=== PATIENT | female | born 1975 | race Caucasian/White ===

== ENCOUNTER 2020-08-03 10:11 | Emergency (ER) | payer BC, SELFPAY ==
[2020-08-03 10:54] LABS: #Basophils 0.1 thou/uL (0.0-0.2); #Eosinphils 0.3 thou/uL (0.0-0.7); #Lymphocytes 3.7 thou/uL (1.20-3.40); #Monocytes 0.6 thou/uL (0.11-0.59); #Neutrophils 8.4 thou/uL (1.40-6.50); %Basophils 0.9 % (0.0-1.0); %Eosinophils 2.2 % (0.0-10.0); %Lymphocytes 28.5 % (21.0-51.0); %Monocytes 4.9 % (0.0-10.0); %Neutrophils 63.6 % (42.0-75.0); Hemoglobin 15.6 g/dL (12.0-16.0); Mean Corpuscular HGB CONC 34.4 g/dL (32.0-36.0); Mean Corpuscular Hemoglobin 30.8 pg (27.0-31.0); Mean Corpuscular Volume 89.7 fL (78.0-98.0); Platelet Count 344 thou/uL (130-400); RBC Distribution Width 12.7 % (11.5-14.5); Red Blood Cell (RBC) Count 5.06 mill/uL (4.20-5.40); White Blood Cell (WBC) Count 13.1 thou/uL (4.8-10.8)
[2020-08-03 11:01] LABS: INR-International Normal Ratio 0.9; Prothrombin Time 11.9 sec (12.0-14.7)
[2020-08-03 11:18] LABS: ALT (SGPT) 20 U/L (8-55); AST (SGOT) 17 U/L (5-34); Alkaline Phosphatase 140 U/L (40-110); Anion Gap 15 mmol/L (10-20); BUN (Urea Nitrogen) 7 mg/dL (7.0-18.7); Bilirubin, Total 0.4 mg/dL (0.2-1.2); Calc. Creatinine Clearance 0 mL/min (70-130); Calcium 9.1 mg/dL (7.8-10.44); Carbon Dioxide 21 mmol/L (22-29); Chloride 104 mmol/L (98-107); Estimated GFR-MDRD Greater than 90; Globulin 3.2 g/dL (2.4-3.5); Glucose 215 mg/dL (70-105); Protein, Total 7.2 g/dL (6.0-8.3); Sodium 136 mmol/L (136-145)
[2020-08-03] MEDS ORDERED: Labetalol HCl 100 MG/20 ML VIAL SLOW IVP PRN (12:02)
[2020-08-03] MEDS ORDERED: Dextrose 50% Abboject 50 ML SYRINGE SLOW IVP PRN (12:02)
[2020-08-03] MEDS ORDERED: niCARdipine 25 MG in Sodium Chloride 0.9% 250 ML 250 ML IVPB PRN (12:02)
[2020-08-03] MEDS ORDERED: Acetaminophen 325 MG TAB PO PRN (12:02)
[2020-08-03] MEDS ORDERED: Dextrose 5% in Water 1,000 ML IV PRN (12:02)
[2020-08-03] MEDS ORDERED: [UNRECOGNIZED DRUG - REMARK] FS SCH (12:02)
[2020-08-03] MEDS ORDERED: hydrALAZINE 20 MG/ML VIAL SLOW IVP PRN (12:02)
[2020-08-03] MEDS ORDERED: HumaLOG 300 UNITS/3 ML VIAL SC PRN ×2 (12:02)
[2020-08-03] MEDS ORDERED: Nicotine 21 MG PATCH TD PRN (12:14)
--- NOTE | 2020-08-03 13:01 | HP ---
CHIEF COMPLAINT: Left-sided weakness. PRIMARY CARE PROVIDER: [facility]. HISTORY OF PRESENT ILLNESS: This is a 45-year-old female with uncontrolled diabetes, hypertension, dyslipidemia, who presented to an outside emergency room called [facility] due to left arm feeling heavy. The patient states that she had been up all night, which is her usual routine and around 7:00 a.m., she felt that her left side was heavier. She could not lift her arm, she attempted to get up and had difficulty with each step. She also stated that she had no feeling on the left side. She denies any prior history, denies any precipitating or relieving factors. In addition to the above symptoms, the left side of her face and her tongue were tingling. The patient reports her blood sugars at home have been in the 200s and 300s despite two medications. She also reports her blood pressures are in the 150s over 90s despite being on an unknown medication for this. She states that she has been trying to lose weight and walking more. Denies any supplements or change in her usual medications. She does report that she has been out of her blood pressure medicine for 2 weeks. The patient at [facility] received tPA and she reports since then that the heaviness on her left side is better and she is able to move more. She states with her speech she can form words, although her speech still feels slow to her. She does note vision changes. In the top left side of her visual field, she describes it as a prism. She reports she had this once before that resolved, however, today it has been persistent. The patient was transferred here from [facility], she has not received any medications and hospitalist called for admission. ALLERGIES: NO KNOWN DRUG ALLERGIES. CURRENT MEDICATIONS: 1. Glipizide 5 mg daily. 2. Metformin 1000 mg b.i.d. 3. An antihypertensive, unknown name. 4. Cholesterol medicine, unknown name. PAST MEDICAL HISTORY: 1. Anxiety and depression, not on medication. 2. Diabetes. 3. Dyslipidemia. 4. Hypertension. PAST SURGICAL HISTORY: 1. Cholecystectomy. 2. Hysterectomy. 3. Tubal ligation. SOCIAL HISTORY: The patient does use one pack of tobacco per day, she denies any alcohol. She reports her daughter Yocasta is her surrogate decision maker and she is a full code. FAMILY HISTORY: Significant for dad who of liver failure, also had hypertension, there is no family history of stroke. REVIEW OF SYSTEMS: Positive for right-sided pain above the right hip, has been going on for few months, low back pain for few months, nausea and dizziness spells. Negative for fevers, chills, vomiting. All remaining review of systems are reviewed and negative. PHYSICAL EXAMINATION: VITAL SIGNS: Blood pressure 148/93, pulse 93, respirations 21, temperature 98.3, sats are 100% on room air. GENERAL: She is awake, alert, responsive, not in apparent distress. HEENT: Her pupils are equal and round. No scleral icterus. Oral mucosa is pink, appears dry. Slight facial droop on the left side. NECK: Supple, nontender. LYMPHATICS: No palpable cervical or supraclavicular lymphadenopathy. LUNGS: Clear to auscultation. No audible wheezing, rhonchi, or rales. HEART: Normal S1, S2. Regular rate and rhythm. No significant murmur. ABDOMEN: Soft, present bowel sounds. Nontender, nondistended. EXTREMITIES: No clubbing, cyanosis, or edema. VASCULAR: 2+ dorsalis pedis pulses. PSYCH: Appears euthymic. NEUROLOGIC: Cranial nerves 2 through 12 are intact. Strain on the left side, it is 4/5, throughout the right side is 5/5. Reflexes; no ankle clonus, 2+ patellar and Achilles, 2+ brachioradialis. LABORATORY DATA: Reviewed from [facility]. Troponin negative. CK 75. Urinalysis; present glucose, small leukocyte esterase, negative nitrite. INR 1.0. CBC; 12.1, 14.9, 42.2, 343 with 62% neutrophils, 31% lymphocytes. BMP; 139, 4.2, 94, 23, 9, less than 0.2, 288. CT of the brain negative. CT angiogram is listed, however, no results are included from [facility]. IMPRESSION: 1. Ischemic stroke, status post tPA at an outside facility with an improving NIH score and subjective improvement in the left-sided deficits including speech changes. 2. Uncontrolled diabetes mellitus. 3. Likely uncontrolled hypertension. 4. Dyslipidemia. 5. Tobacco abuse. 6. Leukocytosis likely secondary to stroke. PLAN: 1. Admission to the ICU. 2. Post tPA stroke care which includes management of blood pressures, avoidance of any aspirin products or pharmacologic DVT prophylaxis for 24 hours. 3. Starting a statin, Neurology consultation and Stroke team consultation. 4. MRI and echocardiogram. We will need to obtain results from [facility] on the CT angiogram. 5. If the patient passed bedside swallow, we will start a diet. 6. Avoiding any lab draws for 24 hours post tPA, she will need a lipid panel and monitoring of her renal function as well as white blood cell count. 7. We will start with regular insulin sliding scale, monitoring her blood sugars, adding long-acting insulin if needed. Hold on the metformin now due to contrast study, and the glipizide as I am uncertain how much p.o. intake she will have. 8. We will use p.r.n. medication to control her blood pressures, will need to obtain the medication that she is on as an outpatient and start that. 9. High-dose statin. 10. Nicotine replacement as needed. 11. DVT prophylaxis, pneumatic compression devices as she is status post tPA. GI prophylaxis not indicated. 12. Code status is full. Surrogate decision maker is her daughter. 13. Reviewed the plan of care with the patient who demonstrates understanding and agrees. No questions or further needs at the end of evaluation. 14. The patient is at high risk given age, comorbidities, and current presentation. Addendum - patient signed out from the ER against medical advice- please see separate note with details. Job ID: [id number] [id number]
[2020-08-03] MEDS ORDERED: Lorazepam 2 MG/ML VIAL ONE (14:14)
--- NOTE | 2020-08-03 18:19 | PDOC.EVN ---
Event Note - Event Note Event Note: contacted by the nurse earlier that pt was leaving AMA. Stopped by the room and asked pt how we can be helpful - she reports just wanting to go home, states her bedroom is her safe place. she states she cannot stay inthe hospital, she is worried about many things. She states she will follow up, and she demonstrates understanding of the risk of bleeding in her head and risk of . There is no indication for holding her in the hospital against her will - she demonstrates capacity for medical decision making. I discussed that we have medication that can help with anxiety or worry. She reports she received medicine (by report from the nursing assistants teacher - lorazepam IV) and it was worse. Pt wanted to know how she can help herself - discussed that she needs to follow up with the [facility] tomorrow - specifically to ask how to improve diabetes and blood pressure control, and to stop smoking. We also discussed that they can help with mood - anxiety/depression. After the discussion the patient wanted to talk with her son and I stepped out of the room. By report from the nursing staff, she chose to leave against medical advice.
[2020-08-03] MEDS ORDERED: Atorvastatin Calcium 40 MG TAB PO SCH (21:00)
== END 2020-08-03 12:17 | disposition short-term general hospital (02) ==
LOC: ERS 10:11
DX: R53.1 Weakness (principal); Z92.82 Status post administration of tPA (rtPA) in a different facility within the last 24 hours prior to admission to current facility; I10 Essential (primary) hypertension; E78.5 Hyperlipidemia, unspecified; E11.9 Type 2 diabetes mellitus without complications; F17.210 Nicotine dependence, cigarettes, uncomplicated; F41.9 Anxiety disorder, unspecified; F32.9 Major depressive disorder, single episode, unspecified; Z79.84 Long term (current) use of oral hypoglycemic drugs; Z79.899 Other long term (current) drug therapy
CPT/HCPCS: 80053; 85025; 85610; 85730; 93005; 96374; J2060

== ENCOUNTER 2022-12-27 11:17 | Inpatient (IN) | payer OTHER, SELFPAY ==
[2022-12-27] MEDS ORDERED: methylPREDNISolone Sod Succ/PF 125 MG/2 ML VIAL ONE (12:02)
[2022-12-27 12:15] LABS: #Basophils 0.1 thou/uL (0.0-0.2); #Eosinphils 0.2 thou/uL (0.0-0.7); #Lymphocytes 3.7 thou/uL (1.20-3.40); #Monocytes 0.5 thou/uL (0.11-0.59); #Neutrophils 7.1 thou/uL (1.40-6.50); %Basophils 0.8 % (0.0-1.0); %Eosinophils 1.7 % (0.0-10.0); %Lymphocytes 31.9 % (21.0-51.0); %Monocytes 4.4 % (0.0-10.0); %Neutrophils 61.2 % (42.0-75.0); Hemoglobin 15.3 g/dL (12.0-16.0); Mean Corpuscular HGB CONC 33.9 g/dL (32.0-36.0); Mean Corpuscular Hemoglobin 30.2 pg (27.0-31.0); Mean Corpuscular Volume 89.1 fl (78.0-98.0); Mean Platelet Volume 7.6 fL (7.4-10.4); Platelet Count 323 10x3/uL (130-400); RBC Distribution Width 12.5 % (11.5-14.5); Red Blood Cell (RBC) Count 5.05 mill/uL (4.20-5.40); White Blood Cell (WBC) Count 11.6 10x3/uL (4.8-10.8)
[2022-12-27] MEDS ORDERED: Ipratropium Bromide 2.5 ml Neb ONE (12:18)
[2022-12-27 12:37] LABS: ALT (SGPT) 13 U/L (8-55); AST (SGOT) 10 U/L (5-34); Albumin 3.9 g/dL (3.5-5.0); Alkaline Phosphatase 156 U/L (40-110); Anion Gap 14 mmol/L (10-20); BUN (Urea Nitrogen) 14 mg/dL (7.0-18.7); Bilirubin, Total 0.5 mg/dL (0.2-1.2); Calc. Creatinine Clearance 0 mL/min (70-130); Calcium 9.2 mg/dL (7.8-10.44); Carbon Dioxide 23 mmol/L (22-29); Chloride 103 mmol/L (98-107); Estimated GFR 93; Glucose 347 mg/dL (70-105); Lipase 17 U/L (8-78); Potassium 3.6 mmol/L (3.5-5.1); Protein, Total 6.9 g/dL (6.0-8.3); Sodium 136 mmol/L (136-145)
[2022-12-27 12:58] LABS: CKMB 1.2 ng/mL (0-6.6)
[2022-12-27] MEDS ORDERED: Ketorolac Tromethamine 30 MG/ML VIAL ONE (13:47)
[2022-12-27] MEDS ORDERED: Acetaminophen 325 MG TAB PO PRN (14:22)
[2022-12-27] MEDS ORDERED: Aspirin 325 mg Enteric Coated Tablet PO SCH (14:30)
[2022-12-27] MEDS ORDERED: Dextrose 5% in Water 1,000 ML IV PRN (14:30)
[2022-12-27] MEDS ORDERED: Pantoprazole 40 MG VIAL IVP SCH (14:30)
[2022-12-27] MEDS ORDERED: HumaLOG 300 UNITS/3 ML VIAL SC PRN ×2 (14:30)
[2022-12-27] MEDS ORDERED: Dextrose 50% Abboject 50 ML SYRINGE SLOW IVP PRN (14:30)
[2022-12-27 14:50] LABS: SARS-CoV-2 NAA Rapid Test Not Detected (NotDetected)
[2022-12-27] MEDS ORDERED: Pantoprazole 40 MG VIAL ONE (14:54)
[2022-12-27] MEDS ORDERED: Nitroglycerin 2% Ointment 1 INCH/1 GM Packet ONE (15:05)
[2022-12-27] MEDS ORDERED: Morphine 4 MG/ML VIAL ONE (15:05)
[2022-12-27] MEDS: Morphine 4 MG/ML VIAL SLOW IVP PRN ×2 (15:11→19:35)
[2022-12-27] MEDS ORDERED: Nitroglycerin 2% Ointment 1 INCH/1 GM Packet TOP SCH (15:15)
[2022-12-27 15:21] LABS: Hemoglobin A1c 10.4 % (4.0-6.0)
[2022-12-27 15:29] LABS: Troponin I 0.026 ng/mL (< 0.028)
[2022-12-27] MEDS ORDERED: Acetaminophen 325 MG TAB ONE (17:08)
[2022-12-27 19:55] VITALS: BMI 36.2
[2022-12-27 20:54] LABS: Troponin I 0.058 ng/mL (< 0.028)
[2022-12-27] MEDS ORDERED: Insulin Glargine 30 UNITS/0.3 ML VIAL SC SCH (21:00)
[2022-12-27] MEDS: Morphine 2 MG/ML VIAL SLOW IVP PRN (22:55)
[2022-12-27] MEDS ORDERED: Nitroglycerin 2% Ointment 1 INCH/1 GM Packet TOP PRN (23:03)
[2022-12-28 02:25] LABS: #Lymphocytes 2.2 thou/uL (1.20-3.40); #Monocytes 0.3 thou/uL (0.11-0.59); #Neutrophils 13.6 thou/uL (1.40-6.50); %Basophils 0.1 % (0.0-1.0); %Eosinophils 0.1 % (0.0-10.0); %Lymphocytes 13.4 % (21.0-51.0); %Monocytes 1.9 % (0.0-10.0); %Neutrophils 84.5 % (42.0-75.0); Hemoglobin 14.6 g/dL (12.0-16.0); Mean Corpuscular HGB CONC 34.1 g/dL (32.0-36.0); Mean Corpuscular Hemoglobin 30.3 pg (27.0-31.0); Mean Corpuscular Volume 88.8 fl (78.0-98.0); Mean Platelet Volume 7.7 fL (7.4-10.4); Platelet Count 358 10x3/uL (130-400); RBC Distribution Width 12.5 % (11.5-14.5); Red Blood Cell (RBC) Count 4.84 mill/uL (4.20-5.40); White Blood Cell (WBC) Count 16.1 10x3/uL (4.8-10.8)
[2022-12-28 02:56] LABS: Anion Gap 15 mmol/L (10-20); BUN (Urea Nitrogen) 13 mg/dL (7.0-18.7); Calc. Creatinine Clearance 147 mL/min (70-130); Calcium 9.6 mg/dL (7.8-10.44); Carbon Dioxide 20 mmol/L (22-29); Cardiac Risk 6.2 (Less than 4.5); Chloride 106 mmol/L (98-107); Cholesterol 247 mg/dl (< 200 Desired); Estimated GFR 102; HDL Cholesterol 40 mg/dL (>60 Neg Risk); LDL Cholesterol, Calculated 173 mg/dL; Potassium 4.6 mmol/L (3.5-5.1); Sodium 136 mmol/L (136-145); Triglycerides 172 mg/dL (Less than 150)
[2022-12-28 03:00] LABS: Glucose 416 mg/dL (70-105); Troponin I 0.212 ng/mL (< 0.028)
[2022-12-28] MEDS: Nitroglycerin 0.4 MG TAB (25 Tab Bottle) SL PRN ×5 (04:03→08:59)
[2022-12-28] MEDS: Morphine 2 MG/ML VIAL SLOW IVP PRN (09:00)
[2022-12-28] MEDS ORDERED: Aspirin 325 mg Enteric Coated Tablet PO SCH ×2 (09:00)
[2022-12-28] MEDS ORDERED: Iopamidol 370 76% 100 ML VIAL ONE (11:24)
[2022-12-28] MEDS ORDERED: Atorvastatin Calcium 40 MG TAB PO SCH (11:45)
[2022-12-28] MEDS ORDERED: Lidocaine 1% (PF) 30 ML VIAL ONE (11:55)
[2022-12-28] MEDS ORDERED: Communication Order-Pharmacy FS SCH (12:00)
[2022-12-28] MEDS ORDERED: FENTANYL 50 MCG/ML 1 ML VIAL ONE (12:32)
[2022-12-28] MEDS ORDERED: Midazolam HCl 2 mg/2 ml Vial ONE (12:32)
[2022-12-28] MEDS ORDERED: Heparin 10,000 UNITS/ 10 ML VIAL ONE (13:15)
[2022-12-28] MEDS ORDERED: Albumin 5% 500 ML ONE (13:15)
[2022-12-28] MEDS ORDERED: Midazolam HCl 5 mg/5 ml Vial ONE (13:23)
[2022-12-28] MEDS ORDERED: Fentanyl 250 MCG/5 ML VIAL ONE (13:23)
[2022-12-28] MEDS ORDERED: Lidocaine 2% PF 100 mg/5 ml Syringe ONE (13:50)
[2022-12-28] MEDS ORDERED: Vecuronium 10 MG VIAL ONE (13:50)
[2022-12-28] MEDS ORDERED: Succinylcholine Chloride 100 MG/5 ML SYRINGE FS ONE (13:50)
[2022-12-28] MEDS ORDERED: PROPOFOL 200 MG/20 ML VIAL ONE (13:50)
[2022-12-28] MEDS ORDERED: Aminocaproic Acid 5 GM/20 ML VIAL ONE ×2 (13:50→15:10)
[2022-12-28] MEDS ORDERED: Magnesium 5 GM/10 ML VIAL ONE (13:50)
[2022-12-28] MEDS ORDERED: Cardioplegic Soln 1,000 ML BAG ONE (13:50)
[2022-12-28] MEDS ORDERED: Vancomycin 1 GM VIAL ONE ×2 (13:50→17:08)
[2022-12-28] MEDS ORDERED: Ondansetron PF 4 MG/2 ML Vial ONE (13:50)
[2022-12-28] MEDS ORDERED: Calcium Chloride 1 GM/10 ML Abboject SYRINGE ONE (13:50)
[2022-12-28] MEDS ORDERED: Mannitol 12.5 GM/50 ML ONE (13:50)
[2022-12-28] MEDS ORDERED: Sodium Bicarb 50 MEQ/50 ML VIAL ONE (13:50)
[2022-12-28] MEDS ORDERED: Thrombin 5000 UNITS/5 ML VIAL ONE (13:50)
[2022-12-28] MEDS ORDERED: Heparin 30,000 units/30 ml VIAL ONE (13:50)
[2022-12-28] MEDS ORDERED: Protamine Sulfate 250 MG/25 ML VIAL ONE (13:50)
[2022-12-28] MEDS ORDERED: Potassium Chloride 60 MEQ/30 ML VIAL ONE (13:50)
[2022-12-28] MEDS ORDERED: Papaverine 60 MG/2 ML VIAL ONE (13:50)
[2022-12-28] MEDS ORDERED: Heparin 5,000 UNITS/ML VIAL ONE (13:50)
[2022-12-28] MEDS ORDERED: Insulin Regular 300 UNITS/3 ML VIAL ONE (14:05)
[2022-12-28] MEDS ORDERED: CEFAZOLIN 1 GM VIAL ONE (14:59)
[2022-12-28] MEDS ORDERED: Ipratropium/Albuterol 3 ML NEB NEB PRN (17:45)
[2022-12-28] MEDS ORDERED: niCARdipine 25 MG in Sodium Chloride 0.9% 250 ML 250 ML IVPB PRN (17:45)
[2022-12-28] MEDS ORDERED: Morphine 2 MG/ML VIAL SLOW IVP PRN (17:45)
[2022-12-28] MEDS ORDERED: Nitroglycerin 50 MG/250 ML BOT 250 ML IVPB PRN (17:45)
[2022-12-28] MEDS ORDERED: Acetaminophen 325 MG TAB PO PRN (17:45)
[2022-12-28] MEDS ORDERED: NOREPINEPHRINE 8 MG/250 ML-D5W 250 ML IVPB PRN (17:45)
[2022-12-28] MEDS ORDERED: Ondansetron PF 4 MG/2 ML Vial IVP PRN (17:45)
[2022-12-28] MEDS ORDERED: Post-Op Insulin Drip Protocol IVPB ONE (17:45)
[2022-12-28] MEDS ORDERED: Mag-Al 1200 mg/1200 mg/30 ML UDCUP PO PRN (17:45)
[2022-12-28] MEDS ORDERED: DOPamine 400 MG/D5W 250 ML 250 ML IVPB PRN (17:45)
[2022-12-28] MEDS ORDERED: hydrALAZINE 20 MG/ML VIAL SLOW IVP PRN (17:45)
[2022-12-28] MEDS ORDERED: Bisacodyl 10 MG SUPP PR PRN (17:45)
[2022-12-28] MEDS ORDERED: Hetastarch 6% 500 ML 500 ML IVPB PRN (17:45)
[2022-12-28] MEDS ORDERED: Bisacodyl 5 MG TAB PO PRN (17:45)
[2022-12-28] MEDS ORDERED: Fentanyl 100 MCG/2 ML VIAL SLOW IVP PRN ×2 (17:45)
[2022-12-28] MEDS ORDERED: Guaifenesin DM 100-10/5 ML UDCUP PO PRN (17:45)
[2022-12-28] MEDS ORDERED: Dextrose 5% in Water 1,000 ML IV PRN (18:00)
[2022-12-28] MEDS ORDERED: Dextrose 50% Abboject 50 ML SYRINGE SLOW IVP PRN (18:00)
[2022-12-28] MEDS ORDERED: HUMULIN R 100 UNITS in Sodium Chloride 0.9% 100 ML IVPB SCH (18:00)
[2022-12-28 18:07] LABS: Actual Bicarbonate (HCO3a) 24.2 mEq/L (22-28); CO2 Tension 47.2 mmHg (35.0-45.0); Calcium, Ionized (arterial) 1.21 mmol/L (1.12-1.30); Carboxyhemoglobin (COHb) 0.3 gm% (0.0-3.0); O2 Tension (PaO2), arterial 74.4 mmHg (80.0-100.0); Potassium - ABG Lab 3.17 mmol/L (3.70-5.30); pH, Arterial 7.33 (7.35-7.45)
[2022-12-28 18:08] LABS: Puncture Site Arterial Line
[2022-12-28 18:34] LABS: INR-International Normal Ratio 1.2; PTT 26.6 sec (22.9-36.1); Prothrombin Time 15.6 sec (12.0-14.7)
[2022-12-28] MEDS: Ketorolac Tromethamine 30 MG/ML VIAL IVP SCH ×2 (18:37→23:10)
[2022-12-28] MEDS: Lactated Ringer's 1,000 ML IV SCH (18:42)
[2022-12-28 18:54] LABS: Anion Gap 10 mmol/L (10-20); BUN (Urea Nitrogen) 11 mg/dL (7.0-18.7); Calc. Creatinine Clearance 171 mL/min (70-130); Calcium 8.8 mg/dL (7.8-10.44); Carbon Dioxide 23 mmol/L (22-29); Chloride 112 mmol/L (98-107); Estimated GFR 109; Glucose 160 mg/dL (70-105); Potassium 3.3 mmol/L (3.5-5.1); Sodium 142 mmol/L (136-145)
[2022-12-28 19:26] LABS: Hemoglobin 12.2 g/dL (12.0-16.0); Mean Corpuscular HGB CONC 34.1 g/dL (32.0-36.0); Mean Corpuscular Hemoglobin 30.6 pg (27.0-31.0); Mean Corpuscular Volume 89.7 fl (78.0-98.0); Mean Platelet Volume 7.7 fL (7.4-10.4); Platelet Count 342 10x3/uL (130-400); RBC Distribution Width 12.5 % (11.5-14.5)
[2022-12-28 19:48] LABS: Band 1 % (5-11); Lymphocytes 13 % (21-51); MDiff Complete? YES; Monocytes 2 % (0-10); Neutrophil 82 % (42-75); Platelet Morphology Comment Appears Adequate; Polychromasia SLIGHT = 2-3 cells (100X) (0-2/hpf); Reactive Lymphocytes 2 % (0-10)
[2022-12-28] MEDS: Famotidine/PF 20 mg/2ml Vial SLOW IVP SCH (20:40)
[2022-12-28] MEDS: Potassium Chloride 20 MEQ/100 ML PREMIX BAG IVPB PRN (20:40)
[2022-12-28 21:05] LABS: Actual Bicarbonate (HCO3a) 24.5 mEq/L (22-28); Base Excess (BEa) -0.7 mEq/L (-2.0 to +3.0); CO2 Tension 42.1 mmHg (35.0-45.0); Calcium, Ionized (arterial) 1.13 mmol/L (1.12-1.30); Carboxyhemoglobin (COHb) 0.3 gm% (0.0-3.0); Hemoglobin (Hb) 12.4 g/dL (12.0-16.0); O2 Tension (PaO2), arterial 130.4 mmHg (80.0-100.0); Potassium - ABG Lab 4.02 mmol/L (3.70-5.30); pH, Arterial 7.38 (7.35-7.45)
[2022-12-28 21:09] LABS: Puncture Site Arterial Line
[2022-12-28 21:10] LABS: ALV-art Gradient 173.475 mmHg (0-20)
[2022-12-28 21:33] LABS: Actual Bicarbonate (HCO3a) 23.5 mEq/L (22-28); CO2 Tension 38.7 mmHg (35.0-45.0); Calcium, Ionized (arterial) 1.13 mmol/L (1.12-1.30); Carboxyhemoglobin (COHb) 0.1 gm% (0.0-3.0); Hemoglobin (Hb) 12.1 g/dL (12.0-16.0); O2 Tension (PaO2), arterial 105.2 mmHg (80.0-100.0); Potassium - ABG Lab 3.78 mmol/L (3.70-5.30); Puncture Site Arterial Line
[2022-12-28 21:34] LABS: ALV-art Gradient 131.625 mmHg (0-20)
[2022-12-28] MEDS: Atorvastatin Calcium 20 MG TAB PO SCH (22:02)
[2022-12-28] MEDS ORDERED: FENTANYL 50 MCG/ML 1 ML VIAL SLOW IVP PRN (22:08)
[2022-12-28] MEDS: FENTANYL 50 MCG/ML 1 ML VIAL SLOW IVP PRN (22:20)
[2022-12-28] MEDS: CEFAZOLIN 2 GM in Sodium Chloride 0.9% 100 ML IVPB SCH (23:10)
[2022-12-28 23:46] LABS: Hemoglobin 11.1 g/dL (12.0-16.0)
[2022-12-29] LABS: Potassium 3.8 mmol/L (3.5-5.1)
[2022-12-29] MEDS: FENTANYL 50 MCG/ML 1 ML VIAL SLOW IVP PRN ×3 (00:41→05:16)
[2022-12-29] MEDS: Potassium Chloride 20 MEQ/100 ML PREMIX BAG IVPB PRN ×2 (01:14→06:03)
[2022-12-29] MEDS: HYDROcodone/Acetaminophen 5/325 mg Tablet PO PRN ×4 (02:08→20:26)
[2022-12-29 04:59] LABS: Anion Gap 7 mmol/L (10-20); BUN (Urea Nitrogen) 10 mg/dL (7.0-18.7); Calc. Creatinine Clearance 212 mL/min (70-130); Calcium 8.1 mg/dL (7.8-10.44); Carbon Dioxide 25 mmol/L (22-29); Chloride 113 mmol/L (98-107); Estimated GFR 115; Glucose 110 mg/dL (70-105); Potassium 3.9 mmol/L (3.5-5.1); Sodium 141 mmol/L (136-145)
[2022-12-29 05:11] LABS: #Lymphocytes 2.5 thou/uL (1.20-3.40); #Monocytes 0.7 thou/uL (0.11-0.59); #Neutrophils 10.4 thou/uL (1.40-6.50); %Basophils 0.2 % (0.0-1.0); %Eosinophils 0.1 % (0.0-10.0); %Lymphocytes 18.7 % (21.0-51.0); %Monocytes 4.9 % (0.0-10.0); %Neutrophils 76.1 % (42.0-75.0); Hemoglobin 10.7 g/dL (12.0-16.0); Mean Corpuscular HGB CONC 33.5 g/dL (32.0-36.0); Mean Corpuscular Hemoglobin 30.4 pg (27.0-31.0); Mean Corpuscular Volume 90.8 fl (78.0-98.0); Platelet Count 237 10x3/uL (130-400); RBC Distribution Width 12.7 % (11.5-14.5); Red Blood Cell (RBC) Count 3.51 mill/uL (4.20-5.40); White Blood Cell (WBC) Count 13.6 10x3/uL (4.8-10.8)
[2022-12-29] MEDS: Ketorolac Tromethamine 30 MG/ML VIAL IVP SCH ×3 (06:01→17:59)
[2022-12-29] MEDS: CEFAZOLIN 2 GM in Sodium Chloride 0.9% 100 ML IVPB SCH ×2 (06:02→15:39)
[2022-12-29] MEDS: Lactated Ringer's 1,000 ML IV SCH (08:00)
[2022-12-29] MEDS: Magnesium 2 GM/50 ML(in water) 2 GM in Premix Bag 1 BAG IVPB SCH (08:10)
[2022-12-29] MEDS: Insulin Regular 300 UNITS/3 ML VIAL SC PRN ×4 (08:18→20:23)
[2022-12-29] MEDS: Famotidine/PF 20 mg/2ml Vial SLOW IVP SCH ×3 (10:20→20:22)
[2022-12-29] MEDS: Metoprolol Tartrate 25 MG TAB PO SCH ×2 (10:21→20:23)
[2022-12-29] MEDS: Aspirin Chewable 81 MG TAB PO SCH (10:21)
[2022-12-29] MEDS: Polyethylene Glycol 3350 17 GM Packet PO SCH (11:34)
[2022-12-29] MEDS ORDERED: Insulin Glargine 30 UNITS/0.3 ML VIAL SC PRN (17:53)
[2022-12-29] MEDS: Atorvastatin Calcium 20 MG TAB PO SCH (20:22)
[2022-12-30] MEDS: Ketorolac Tromethamine 30 MG/ML VIAL IVP SCH ×5 (00:24→23:03)
[2022-12-30] MEDS: Insulin Regular 300 UNITS/3 ML VIAL SC PRN ×4 (00:24→18:44)
[2022-12-30] MEDS: HYDROcodone/Acetaminophen 5/325 mg Tablet PO PRN ×3 (00:25→14:08)
[2022-12-30 04:35] LABS: #Basophils 0.1 thou/uL (0.0-0.2); #Eosinphils 0.1 thou/uL (0.0-0.7); #Lymphocytes 2.8 thou/uL (1.20-3.40); #Monocytes 0.9 thou/uL (0.11-0.59); #Neutrophils 9.1 thou/uL (1.40-6.50); %Basophils 0.4 % (0.0-1.0); %Lymphocytes 21.5 % (21.0-51.0); %Monocytes 6.6 % (0.0-10.0); %Neutrophils 70.5 % (42.0-75.0); Hemoglobin 9.8 g/dL (12.0-16.0); Mean Corpuscular HGB CONC 32.9 g/dL (32.0-36.0); Mean Corpuscular Volume 91.2 fl (78.0-98.0); Mean Platelet Volume 7.9 fL (7.4-10.4); Platelet Count 195 10x3/uL (130-400); RBC Distribution Width 12.4 % (11.5-14.5); Red Blood Cell (RBC) Count 3.26 mill/uL (4.20-5.40); White Blood Cell (WBC) Count 12.8 10x3/uL (4.8-10.8)
[2022-12-30 04:55] LABS: Anion Gap 10 mmol/L (10-20); BUN (Urea Nitrogen) 16 mg/dL (7.0-18.7); Calc. Creatinine Clearance 211 mL/min (70-130); Calcium 8.4 mg/dL (7.8-10.44); Carbon Dioxide 26 mmol/L (22-29); Chloride 105 mmol/L (98-107); Estimated GFR 114; Glucose 114 mg/dL (70-105); Potassium 3.6 mmol/L (3.5-5.1); Sodium 137 mmol/L (136-145)
[2022-12-30] MEDS: Potassium Chloride 20 MEQ/100 ML PREMIX BAG IVPB PRN (05:21)
[2022-12-30] MEDS: Magnesium 2 GM/50 ML(in water) 2 GM in Premix Bag 1 BAG IVPB SCH (08:48)
[2022-12-30] MEDS: Famotidine/PF 20 mg/2ml Vial SLOW IVP SCH (08:49)
[2022-12-30] MEDS: Aspirin Chewable 81 MG TAB PO SCH (08:49)
[2022-12-30] MEDS: FENTANYL 50 MCG/ML 1 ML VIAL SLOW IVP PRN ×2 (08:50→20:48)
[2022-12-30] MEDS: Metoprolol Tartrate 25 MG TAB PO SCH ×2 (08:50→20:48)
[2022-12-30] MEDS: Polyethylene Glycol 3350 17 GM Packet PO SCH (09:00)
[2022-12-30] MEDS ORDERED: Nitroglycerin 0.4 MG TAB (25 Tab Bottle) SL PRN (09:28)
[2022-12-30] MEDS ORDERED: Furosemide 40 MG TAB PO SCH (10:30)
[2022-12-30] MEDS ORDERED: Famotidine 20 MG TAB PO SCH (10:30)
[2022-12-30] MEDS ORDERED: Potassium Chloride 10 MEQ TAB PO SCH (10:30)
[2022-12-30 17:58] LABS: Glucose 212 mg/dL (70-105)
[2022-12-30] MEDS: Famotidine 20 MG TAB PO SCH (20:48)
[2022-12-30] MEDS: Atorvastatin Calcium 40 MG TAB PO SCH (20:48)
[2022-12-30 21:29] LABS: Glucose 198 mg/dL (70-105)
[2022-12-31] MEDS: HYDROcodone/Acetaminophen 5/325 mg Tablet PO PRN ×5 (02:53→22:19)
[2022-12-31 04:48] LABS: #Eosinphils 0.2 thou/uL (0.0-0.7); #Lymphocytes 2.3 thou/uL (1.20-3.40); #Monocytes 0.9 thou/uL (0.11-0.59); #Neutrophils 9.8 thou/uL (1.40-6.50); %Basophils 0.4 % (0.0-1.0); %Eosinophils 1.4 % (0.0-10.0); %Lymphocytes 17.4 % (21.0-51.0); %Monocytes 6.5 % (0.0-10.0); %Neutrophils 74.3 % (42.0-75.0); Mean Corpuscular HGB CONC 33.8 g/dL (32.0-36.0); Mean Corpuscular Hemoglobin 30.7 pg (27.0-31.0); Mean Platelet Volume 8.2 fL (7.4-10.4); Platelet Count 204 10x3/uL (130-400); RBC Distribution Width 12.3 % (11.5-14.5); Red Blood Cell (RBC) Count 3.25 mill/uL (4.20-5.40); White Blood Cell (WBC) Count 13.1 10x3/uL (4.8-10.8)
[2022-12-31 05:08] LABS: Anion Gap 12 mmol/L (10-20); BUN (Urea Nitrogen) 14 mg/dL (7.0-18.7); Calc. Creatinine Clearance 204 mL/min (70-130); Carbon Dioxide 25 mmol/L (22-29); Chloride 104 mmol/L (98-107); Potassium 3.7 mmol/L (3.5-5.1); Sodium 137 mmol/L (136-145)
[2022-12-31 05:09] LABS: Calcium 8.7 mg/dL (7.8-10.44); Estimated GFR 113; Glucose 190 mg/dL (70-105)
[2022-12-31] MEDS: Ketorolac Tromethamine 30 MG/ML VIAL IVP SCH ×3 (05:57→18:25)
[2022-12-31] MEDS: Polyethylene Glycol 3350 17 GM Packet PO SCH (08:22)
[2022-12-31] MEDS: Metoprolol Tartrate 25 MG TAB PO SCH ×2 (08:23→22:14)
[2022-12-31] MEDS: Potassium Chloride 10 MEQ TAB PO SCH (08:23)
[2022-12-31] MEDS: Furosemide 40 MG TAB PO SCH (08:23)
[2022-12-31] MEDS: Aspirin Chewable 81 MG TAB PO SCH (08:23)
[2022-12-31] MEDS: Famotidine 20 MG TAB PO SCH ×2 (08:24→22:14)
[2022-12-31] MEDS ORDERED: Carvedilol 3.125 MG TAB PO SCH (09:39)
[2022-12-31] MEDS: Insulin Regular 300 UNITS/3 ML VIAL SC PRN ×2 (13:05→18:26)
[2022-12-31] MEDS: Atorvastatin Calcium 40 MG TAB PO SCH (22:14)
[2023-01-01] MEDS: HYDROcodone/Acetaminophen 5/325 mg Tablet PO PRN ×4 (05:46→20:12)
[2023-01-01] MEDS: Potassium Chloride 10 MEQ TAB PO SCH (09:38)
[2023-01-01] MEDS: Metoprolol Tartrate 25 MG TAB PO SCH ×2 (09:39→20:11)
[2023-01-01] MEDS: Aspirin Chewable 81 MG TAB PO SCH (09:39)
[2023-01-01] MEDS: Furosemide 40 MG TAB PO SCH (09:39)
[2023-01-01] MEDS: Alogliptin 6.25 MG TAB PO SCH (09:39)
[2023-01-01] MEDS: Polyethylene Glycol 3350 17 GM Packet PO SCH (09:39)
[2023-01-01] MEDS: Famotidine 20 MG TAB PO SCH ×2 (09:39→20:11)
[2023-01-01] MEDS: Insulin Regular 300 UNITS/3 ML VIAL SC PRN ×2 (13:49→21:12)
[2023-01-01] MEDS: Atorvastatin Calcium 40 MG TAB PO SCH (20:11)
[2023-01-01] MEDS ORDERED: Morphine 2 MG/ML VIAL SLOW IVP SCH (22:30)
[2023-01-02] MEDS: HYDROcodone/Acetaminophen 5/325 mg Tablet PO PRN ×2 (00:50→07:45)
[2023-01-02 07:51] VITALS: BP 120/73; TEMP 98.5
[2023-01-02] MEDS: Polyethylene Glycol 3350 17 GM Packet PO SCH (07:56)
[2023-01-02] MEDS: Aspirin Chewable 81 MG TAB PO SCH (07:56)
[2023-01-02] MEDS: Alogliptin 6.25 MG TAB PO SCH (07:56)
[2023-01-02] MEDS: Famotidine 20 MG TAB PO SCH (07:57)
[2023-01-02] MEDS: Furosemide 40 MG TAB PO SCH (07:57)
[2023-01-02] MEDS: Metoprolol Tartrate 25 MG TAB PO SCH (07:57)
[2023-01-02] MEDS: Potassium Chloride 10 MEQ TAB PO SCH (07:57)
[2023-01-03 14:24] LABS: Actual Bicarbonate (HCO3a) 20.3 mEq/L (22-28); Analyzer IN Cardio OR; Base Excess (BEa) -4.2 mEq/L (-2.0 to +3.0); CO2 Tension 35.4 mmHg (35.0-45.0); Calcium, Ionized (arterial) 1.16 mmol/L (1.12-1.30); Carboxyhemoglobin (COHb) 1.1 gm% (0.0-3.0); Hemoglobin (Hb) 12.9 g/dL (12.0-16.0); O2 Tension (PaO2), arterial 180.9 mmHg (80.0-100.0); Potassium - ABG Lab 3.43 mmol/L (3.70-5.30); pH, Arterial 7.38 (7.35-7.45)
[2023-01-03 14:24] LABS: Actual Bicarbonate (HCO3a) 21.3 mEq/L (22-28); Analyzer IN Cardio OR; Base Excess (BEa) -4.6 mEq/L (-2.0 to +3.0); CO2 Tension 42.3 mmHg (35.0-45.0); Calcium, Ionized (arterial) 1.13 mmol/L (1.12-1.30); Carboxyhemoglobin (COHb) 0.3 gm% (0.0-3.0); Hemoglobin (Hb) 12.2 g/dL (12.0-16.0); O2 Tension (PaO2), arterial 278.9 mmHg (80.0-100.0); Potassium - ABG Lab 3.47 mmol/L (3.70-5.30); pH, Arterial 7.32 (7.35-7.45)
[2023-01-03 14:24] LABS: Actual Bicarbonate (HCO3a) 21.6 mEq/L (22-28); Analyzer IN Cardio OR; Base Excess (BEa) -3.5 mEq/L (-2.0 to +3.0); CO2 Tension 38.9 mmHg (35.0-45.0); Calcium, Ionized (arterial) 1.06 mmol/L (1.12-1.30); Carboxyhemoglobin (COHb) 0.1 gm% (0.0-3.0); Hemoglobin (Hb) 10.2 g/dL (12.0-16.0); O2 Tension (PaO2), arterial 290.5 mmHg (80.0-100.0); Potassium - ABG Lab 4.17 mmol/L (3.70-5.30); pH, Arterial 7.36 (7.35-7.45)
[2023-01-03 14:25] LABS: Actual Bicarbonate (HCO3a) 24.6 mEq/L (22-28); Analyzer IN Cardio OR; Base Excess (BEa) -1.6 mEq/L (-2.0 to +3.0); CO2 Tension 48.5 mmHg (35.0-45.0); Calcium, Ionized (arterial) 1.21 mmol/L (1.12-1.30); Carboxyhemoglobin (COHb) 0.2 gm% (0.0-3.0); Hemoglobin (Hb) 9.5 g/dL (12.0-16.0); O2 Tension (PaO2), arterial 166.6 mmHg (80.0-100.0); Potassium - ABG Lab 2.77 mmol/L (3.70-5.30); pH, Arterial 7.32 (7.35-7.45)
[2023-01-03 14:25] LABS: Actual Bicarbonate (HCO3a) 23.6 mEq/L (22-28); Analyzer IN Cardio OR; Base Excess (BEa) -2.3 mEq/L (-2.0 to +3.0); CO2 Tension 45.1 mmHg (35.0-45.0); Calcium, Ionized (arterial) 1.31 mmol/L (1.12-1.30); Carboxyhemoglobin (COHb) 0.3 gm% (0.0-3.0); Hemoglobin (Hb) 9.9 g/dL (12.0-16.0); O2 Tension (PaO2), arterial 267.3 mmHg (80.0-100.0); Potassium - ABG Lab 3.18 mmol/L (3.70-5.30); pH, Arterial 7.34 (7.35-7.45)
[2023-01-03 14:25] LABS: Actual Bicarbonate (HCO3a) 26.1 mEq/L (22-28); Analyzer IN Cardio OR; Base Excess (BEa) -0.2 mEq/L (-2.0 to +3.0); CO2 Tension 50.9 mmHg (35.0-45.0); Calcium, Ionized (arterial) 1.04 mmol/L (1.12-1.30); Carboxyhemoglobin (COHb) 0.4 gm% (0.0-3.0); Hemoglobin (Hb) 9.8 g/dL (12.0-16.0); O2 Tension (PaO2), arterial 281.9 mmHg (80.0-100.0); Potassium - ABG Lab 3.72 mmol/L (3.70-5.30); pH, Arterial 7.33 (7.35-7.45)
[2023-01-03 14:26] LABS: Puncture Site Arterial Line
[2023-01-03 14:26] LABS: Puncture Site Arterial Line
[2023-01-03 14:27] LABS: Puncture Site Arterial Line
[2023-01-03 14:27] LABS: Puncture Site Arterial Line
[2023-01-03 14:28] LABS: Puncture Site Arterial Line
[2023-01-03 14:28] LABS: Puncture Site Arterial Line
== END 2023-01-02 11:00 | disposition home or self-care (01) | DRG 234 ==
LOC: ERS 11:17 → ERHOLD 13:43 → 2SW 18:08 → OBSVTOIN 12-28 10:24 → CCU 12-28 13:13 → 2NO 12-31 13:36
PROVIDERS: ADMIT Hospitalist; ATTEND Family Medicine
PROC: 02100Z9 Bypass Coronary Artery, One Artery from Left Internal Mammary, Open Approach (ICD-10-PCS; principal; 2022-12-28)
PROC: 4A023N7 Measurement of Cardiac Sampling and Pressure, Left Heart, Percutaneous Approach (ICD-10-PCS; 2022-12-28)
PROC: 021209W Bypass Coronary Artery, Three Arteries from Aorta with Autologous Venous Tissue, Open Approach (ICD-10-PCS; 2022-12-28)
PROC: 06BQ4ZZ Excision of Left Saphenous Vein, Percutaneous Endoscopic Approach (ICD-10-PCS; 2022-12-28)
PROC: 5A1221Z Performance of Cardiac Output, Continuous (ICD-10-PCS; 2022-12-28)
PROC: 02L70ZK Occlusion of Left Atrial Appendage, Open Approach (ICD-10-PCS; 2022-12-28)
PROC: B2111ZZ Fluoroscopy of Multiple Coronary Arteries using Low Osmolar Contrast (ICD-10-PCS; 2022-12-28)
PROC: B2151ZZ Fluoroscopy of Left Heart using Low Osmolar Contrast (ICD-10-PCS; 2022-12-28)
DX: I21.4 Non-ST elevation (NSTEMI) myocardial infarction (principal); Z20.822 Contact with and (suspected) exposure to COVID-19; I10 Essential (primary) hypertension; F41.9 Anxiety disorder, unspecified; F32.A Depression, unspecified; E78.5 Hyperlipidemia, unspecified; F17.290 Nicotine dependence, other tobacco product, uncomplicated; E11.65 Type 2 diabetes mellitus with hyperglycemia; E11.69 Type 2 diabetes mellitus with other specified complication; I25.10 Atherosclerotic heart disease of native coronary artery without angina pectoris; E66.01 Morbid (severe) obesity due to excess calories; Z90.49 Acquired absence of other specified parts of digestive tract; Z90.710 Acquired absence of both cervix and uterus; Z98.51 Tubal ligation status; Z87.891 Personal history of nicotine dependence; Z91.14 Patient's other noncompliance with medication regimen; Z68.36 Body mass index [BMI] 36.0-36.9, adult; Z79.899 Other long term (current) drug therapy
CPT/HCPCS: 36415; 36416; 36430; 71045; 80048; 80053; 80061; 82553; 82805; 83036; 83690; 83880; 84443; 84484; 85025; 85610; 85730; 86850; 86900; 86901; 93005; 93010; 93306; 93458; 93798; 94002; 94150; 94640; 96372; 96374; 96375; 96376; 97139; 99152; C1713; C1751; C1769; C1776; C9113; G0378; J0690; J1265; J1644; J1650; J1815; J1885; J2001; J2150; J2250; J2270; J2272; J2405; J2440; J2704; J2720; J2930; J3010; J3370; J3475; J3480; J3490; J7120; J7611; P9045; Q9967; S0017; S0028; U0002

== ENCOUNTER 2023-02-01 19:38 | Observation (INO) | payer OTHER ==
[~2023-02-01 19:38] MED LIST: Iopamidol-370 76% 500 ML MDV (1 ML CHARGE) ONE
[2023-02-01] MEDS ORDERED: Ondansetron PF 4 MG/2 ML Vial ONE (19:54)
[2023-02-01 20:17] LABS: #Basophils 0.1 thou/uL (0.0-0.2); #Eosinphils 0.2 thou/uL (0.0-0.7); #Lymphocytes 1.7 thou/uL (1.20-3.40); #Monocytes 0.6 thou/uL (0.11-0.59); #Neutrophils 13.6 thou/uL (1.40-6.50); %Basophils 0.4 % (0.0-1.0); %Eosinophils 1.3 % (0.0-10.0); %Lymphocytes 10.5 % (21.0-51.0); %Monocytes 3.6 % (0.0-10.0); %Neutrophils 84.2 % (42.0-75.0); Hemoglobin 13.7 g/dL (12.0-16.0); Mean Corpuscular HGB CONC 33.1 g/dL (32.0-36.0); Mean Corpuscular Hemoglobin 28.9 pg (27.0-31.0); Mean Corpuscular Volume 87.3 fl (78.0-98.0); Mean Platelet Volume 7.4 fL (7.4-10.4); Platelet Count 328 10x3/uL (130-400); RBC Distribution Width 14.3 % (11.5-14.5); Red Blood Cell (RBC) Count 4.73 mill/uL (4.20-5.40); White Blood Cell (WBC) Count 16.1 10x3/uL (4.8-10.8)
[2023-02-01 20:43] LABS: ALT (SGPT) 10 U/L (8-55); AST (SGOT) 10 U/L (5-34); Albumin 4.1 g/dL (3.5-5.0); Alkaline Phosphatase 154 U/L (40-110); Anion Gap 16 mmol/L (10-20); BUN (Urea Nitrogen) 9 mg/dL (7.0-18.7); Bilirubin, Total 0.5 mg/dL (0.2-1.2); Calc. Creatinine Clearance 0 mL/min (70-130); Calcium 9.2 mg/dL (7.8-10.44); Carbon Dioxide 19 mmol/L (22-29); Chloride 104 mmol/L (98-107); Estimated GFR 96; Globulin 3.2 g/dL (2.4-3.5); Glucose 303 mg/dL (70-105); Lipase 24 U/L (8-78); Potassium 3.9 mmol/L (3.5-5.1); Protein, Total 7.3 g/dL (6.0-8.3); Sodium 135 mmol/L (136-145)
[2023-02-01 22:09] LABS: Bacteria/HPF 4+ HPF (None Seen); Bilirubin Negative (Negative); Blood, Urine 3+ (Negative); Clarity Turbid (Clear); Glucose, Urine (Dipstick) 200 mg/dL (Negative); Ketone, Urine Negative (Negative); Leukocyte 500 Leu/uL (Negative); Nitrite Negative (Negative); Protein, Urine (Dipstick) 70 mg/dL (Neg-Trace); RBC/HPF Greater than 50 HPF (0-3); Specific Gravity, Urine 1.028 (1.002-1.036); Urobilinogen Normal mg/dL (Less than 2); WBC/HPF Greater than 50 HPF (0-3); pH, Urine 5.5 (5.0-9.0)
[2023-02-01] MEDS ORDERED: cefTRIAXone (ROCEPHIN) 1 GM VIAL ONE (23:06)
[2023-02-02] MEDS ORDERED: Acetaminophen 325 MG TAB PO PRN (05:17)
[2023-02-02] MEDS ORDERED: Ondansetron ODT 4 MG TAB PO PRN (05:17)
[2023-02-02] MEDS ORDERED: Acetaminophen 650 MG Suppository PR PRN (05:17)
[2023-02-02] MEDS ORDERED: Ondansetron PF 4 MG/2 ML Vial IVP PRN (05:17)
[2023-02-02] MEDS ORDERED: Dextrose 5% in Water 1,000 ML IV PRN (06:02)
[2023-02-02] MEDS ORDERED: HumaLOG 300 UNITS/3 ML VIAL SC PRN ×2 (06:02)
[2023-02-02] MEDS ORDERED: Dextrose 50% Abboject 50 ML SYRINGE SLOW IVP PRN (06:02)
[2023-02-02] MEDS ORDERED: HYDROcodone/Acetaminophen 5/325 mg Tablet PO PRN (09:07)
[2023-02-02] MEDS ORDERED: Potassium Chloride 10 MEQ TAB PO SCH (09:15)
[2023-02-02] MEDS ORDERED: Metoprolol Tartrate 25 MG TAB PO SCH ×2 (09:15→21:00)
[2023-02-02] MEDS ORDERED: Aspirin 81 mg Enteric Coated Tablet PO SCH (09:15)
[2023-02-02] MEDS ORDERED: Furosemide 40 MG TAB PO SCH (09:15)
[2023-02-02] MEDS ORDERED: Alogliptin 6.25 MG TAB PO SCH (09:15)
[2023-02-02] MEDS ORDERED: Aspirin Chewable 81 MG TAB ONE (09:57)
[2023-02-02] MEDS ORDERED: Metoprolol Tartrate 25 MG TAB ONE (09:59)
[2023-02-02] MEDS ORDERED: Furosemide 40 MG TAB ONE (09:59)
[2023-02-02 13:30] VITALS: BMI 36.3
[2023-02-02 16:58] VITALS: BP 157/89; TEMP 98.5
[2023-02-02] MEDS ORDERED: Atorvastatin Calcium 40 MG TAB PO SCH (21:00)
[2023-02-02] MEDS ORDERED: cefTRIAXone\\ROCEPHIN 1 GM in Sodium Chloride 0.9% 100 ML IVPB SCH (21:00)
[2023-02-03] MEDS ORDERED: Potassium Chloride 10 MEQ TAB PO SCH (08:00)
[2023-02-03] MEDS ORDERED: Furosemide 40 MG TAB PO SCH (09:00)
[2023-02-03] MEDS ORDERED: Alogliptin 6.25 MG TAB PO SCH (09:00)
[2023-02-03] MEDS ORDERED: Aspirin Chewable 81 MG TAB PO SCH (09:00)
== END 2023-02-02 18:26 | disposition home or self-care (01) ==
LOC: ERS 19:38 → ERHOLD 02-02 03:03 → 2SW 02-02 12:50
PROVIDERS: ADMIT Internal Medicine; ATTEND Internal Medicine
DX: N39.0 Urinary tract infection, site not specified (principal); I31.39 Other pericardial effusion (noninflammatory); R19.7 Diarrhea, unspecified; E11.9 Type 2 diabetes mellitus without complications; E78.5 Hyperlipidemia, unspecified; I10 Essential (primary) hypertension; F17.290 Nicotine dependence, other tobacco product, uncomplicated; J90 Pleural effusion, not elsewhere classified; I08.2 Rheumatic disorders of both aortic and tricuspid valves; I25.10 Atherosclerotic heart disease of native coronary artery without angina pectoris; Z86.73 Personal history of transient ischemic attack (TIA), and cerebral infarction without residual deficits; Z79.2 Long term (current) use of antibiotics; Z79.82 Long term (current) use of aspirin; Z79.84 Long term (current) use of oral hypoglycemic drugs; Z79.899 Other long term (current) drug therapy; Z95.1 Presence of aortocoronary bypass graft
CPT/HCPCS: 36415; 36416; 71045; 74177; 80053; 81003; 81015; 83690; 85025; 93005; 93306; 96365; 96375; G0378; J0696; J2405; Q9967

== ENCOUNTER 2025-09-24 13:55 | Emergency (ER) | payer BC, OTHER ==
[2025-09-24 16:58] LABS: #Basophils 0.08 10x3/uL (0.0-0.2); #Eosinophils 0.15 10x3/uL (0.0-0.7); #Monocytes 0.52 10x3/uL (0.11-0.59); #Neutrophils 6.40 10x3/uL (1.40-6.50); %Basophils 0.8 % (0.0-1.0); %Eosinophils 1.5 % (0.0-10.0); %Lymphocytes 29.6 % (21.0-51.0); %Monocytes 5.1 % (0.0-10.0); %Neutrophils 62.8 % (42.0-75.0); Hematocrit 43.0 % (36.0-47.0); Hemoglobin 14.0 g/dL (12.0-16.0); Mean Corpuscular Hemoglobin 28.0 pg (27.0-31.0); Mean Corpuscular Volume 86.0 fL (78.0-98.0); Platelet Count 337 10x3/uL (130-400); Red Blood Cell (RBC) Count 5.00 mill/uL (4.20-5.40); White Blood Cell (WBC) Count 10.19 10x3/uL (4.8-10.8)
[2025-09-24 17:29] LABS: ALT (SGPT) 17 U/L (Less than 34); AST (SGOT) 11 U/L (11-34); Albumin 3.8 g/dL (3.1-4.5); Alkaline Phosphatase 137 U/L (40-110); Anion Gap 15 mmol/L (10-20); BUN (Urea Nitrogen) 6 mg/dL (9.8-20.1); Bilirubin, Total 0.4 mg/dL (0.3-1.2); Calc. Creatinine Clearance 0 mL/min (70-130); Calcium 9.6 mg/dL (7.8-10.44); Carbon Dioxide 23 mmol/L (22-29); Chloride 102 mmol/L (98-107); Globulin 3.0 g/dL (2.4-3.5); Glucose 505 mg/dL (70-105); Potassium 4.0 mmol/L (3.5-5.1); Sodium 136 mmol/L (136-145)
== END 2025-09-24 19:49 | disposition home or self-care (01) ==
LOC: ERS 13:55
DX: R07.89 Other chest pain (principal); E11.65 Type 2 diabetes mellitus with hyperglycemia; I10 Essential (primary) hypertension; Z86.73 Personal history of transient ischemic attack (TIA), and cerebral infarction without residual deficits; F17.290 Nicotine dependence, other tobacco product, uncomplicated; Z79.84 Long term (current) use of oral hypoglycemic drugs
CPT/HCPCS: 36416; 71045; 80053; 83880; 84484; 85025; 85379; 93005; 96361; 96374; 96375; J1815